=== PATIENT | male | born 1980 | race Caucasian/White ===

== ENCOUNTER 2023-11-20 08:19 | Outpatient (CLI) | payer BC, SELFPAY | END 2023-11-20 08:20 | disposition home or self-care (01) | PROVIDERS: PCP Family Medicine; Visit Provider Family Medicine | DX: Z13.220 Encounter for screening for lipoid disorders (principal); Z13.228 Encounter for screening for other metabolic disorders | CPT/HCPCS: 80048; 80061 ==

== ENCOUNTER 2025-03-30 09:35 | Outpatient (CLI) | payer BC, SELFPAY | END 2025-03-30 09:36 | disposition home or self-care (01) | PROVIDERS: PCP Family Medicine; Visit Provider Family Medicine | DX: E78.5 Hyperlipidemia, unspecified (principal); Z13.1 Encounter for screening for diabetes mellitus | CPT/HCPCS: 80048; 80061 ==